=== PATIENT | female | born 1950 | race Caucasian/White ===

== ENCOUNTER → 2016-11-25 | Outpatient (CLI) | payer OTHER ==
[~2016-11-25] MED LIST: ATV/1 PO; B-COCAP2 PO; CHOL1000 PO; CNC/54 PO; FENO1TAB PO; FLVHFA110 INH; LUTE20TA PO; MECL-91 PO; MOME220A; MULT-506 PO; OMEG10007 PO; PRED1SUS3 OPL; PRLSR20 PO; PROM1SUP19 PR; SCOP1DIS14 TD; SUMA50TA15 PO; SYN100 PO; VITA400C15 PO; calcium PO; excedrine PO
== END | disposition home or self-care (01) ==
LOC: C.MAMM 09:44
PROVIDERS: ATTEND Family Medicine
DX: M85.80 Other specified disorders of bone density and structure, unspecified site (principal); R29.890 Loss of height; Z90.722 Acquired absence of ovaries, bilateral; Z78.0 Asymptomatic menopausal state; Z82.62 Family history of osteoporosis

== ENCOUNTER → 2017-01-19 | Outpatient (CLI) | payer OTHER ==
--- NOTE | 2017-01-19 10:36 | DIAGNOSTIC IMAGING REPORT ---
RIGHT RIBS UNILATERAL WITH PA CHEST CLINICAL HISTORY: Right rib pain. Recent trauma. COMPARISON STUDY: Chest x-ray dated 08/18/2016 FINDINGS: There is no pneumothorax. There is stable basilar atelectasis/scarring. There is no acute parenchymal consolidation. No right-sided rib fractures are visualized. IMPRESSION: No evidence of pneumothorax. No right-sided rib fractures are visualized. Electronically signed by: John Burnett M.D. 01/19/2017 10:35 AM Dictated Date/Time: 01/19/2017 10:33 AM
--- NOTE | 2017-01-19 10:37 | DIAGNOSTIC IMAGING REPORT ---
RIGHT HIP UNILATERAL 2 VIEWS CLINICAL HISTORY: Right hip pain COMPARISON: None. DISCUSSION: No fractures dislocations or destructive lesions are visualized. IMPRESSION: No fractures dislocations or destructive lesions are visualized. Electronically signed by: John Burnett M.D. 01/19/2017 10:35 AM Dictated Date/Time: 01/19/2017 10:35 AM
== END | disposition home or self-care (01) ==
LOC: C.RAD1850 10:17
PROVIDERS: ATTEND Student in an Organized Health Care Education/Training Program
DX: R10.9 Unspecified abdominal pain (principal)

== ENCOUNTER → 2017-01-19 | Outpatient (CLI) | payer OTHER ==
--- NOTE | 2017-01-19 12:15 | DIAGNOSTIC IMAGING REPORT ---
RENAL ULTRASOUND HISTORY: Generalized abdominal pain. COMPARISON: Renal ultrasound 02/27/2010. FINDINGS: Right kidney: 10.9 cm. No hydronephrosis. Normal corticomedullary differentiation and cortical thickness. A probable 4 mm stone within the right kidney. Left kidney: 11.1 cm. No hydronephrosis. Normal corticomedullary differentiation and cortical thickness. Bladder: No bladder wall thickening. The bilateral ureteral jets were identified. IMPRESSION: 1. Probable right-sided nephrolithiasis. No hydronephrosis. 2. Normal left kidney. Electronically signed by: Rashawn Fajardo M.D. 01/19/2017 12:14 PM Dictated Date/Time: 01/19/2017 12:13 PM
== END | disposition home or self-care (01) ==
LOC: C.ULTR 11:34
PROVIDERS: ATTEND Family Medicine
DX: R10.9 Unspecified abdominal pain (principal)

== ENCOUNTER → 2017-03-16 | Outpatient (CLI) | payer OTHER ==
[~2017-03-16] MED LIST changes: +SCOP1.5D2 TD; -SCOP1DIS14 TD
--- NOTE | 2017-03-16 16:24 | DIAGNOSTIC IMAGING REPORT ---
CHEST 2 VIEWS ROUTINE CLINICAL HISTORY: Shortness of breath and cough. COMPARISON STUDY: Chest radiograph August 18, 2016. FINDINGS: Lung volumes are at the lower limits of normal. There is no pneumothorax or pleural effusion. Bibasilar linear opacities suggest atelectasis. Cardiac size is within normal limits. There is no evidence of pulmonary edema. IMPRESSION: 1. No acute cardiopulmonary findings. 2. Bibasilar opacities suggestive of atelectasis. Electronically signed by: Viraj Rosales M.D. 03/16/2017 4:22 PM Dictated Date/Time: 03/16/2017 4:21 PM
== END | disposition home or self-care (01) ==
LOC: C.RAD1850 16:03
PROVIDERS: ATTEND Family Medicine
DX: R06.02 Shortness of breath (principal); R91.8 Other nonspecific abnormal finding of lung field

== ENCOUNTER → 2017-04-01 | Outpatient (CLI) | payer OTHER ==
[~2017-04-01] MED LIST changes: +OPTIRAY 320 IV PRN
--- NOTE | 2017-04-01 16:27 | DIAGNOSTIC IMAGING REPORT ---
CHEST CTA for PULMONARY ARTERIES CT DOSE: 370.27 mGycm HISTORY: Dyspnea SOB EVAL FOR PE TECHNIQUE: Multiaxial CT images of the chest were performed following the intravenous administration of contrast to evaluate the pulmonary arteries. Maximal intensity projection images were also obtained. COMPARISON STUDY: None. FINDINGS: There is a normal caliber thoracic aorta with no evidence for dissection. There is no evidence for pulmonary embolus. No pleural effusions. No pneumothorax. The liver and spleen are unremarkable. No mediastinal or hilar lymphadenopathy. The central airways are patent. The lungs demonstrate bibasilar parenchymal infiltrative change. IMPRESSION: 1. Study is negative for pulmonary embolus. 2. Poorly defined bibasilar parenchymal infiltrative change. Electronically signed by: Ac Nguyen M.D. 04/01/2017 4:25 PM Dictated Date/Time: 04/01/2017 4:17 PM
== END | disposition home or self-care (01) ==
LOC: C.CTS 15:57
PROVIDERS: ATTEND Family Medicine
DX: R06.02 Shortness of breath (principal); R91.8 Other nonspecific abnormal finding of lung field

== ENCOUNTER → 2017-04-08 | Outpatient (CLI) | payer OTHER ==
[~2017-04-08] MED LIST changes: -OPTIRAY 320 IV PRN
--- NOTE | 2017-04-13 06:39 | PULMONARY FUNCTION TEST ---
CLINICAL DATA: A 67-year-old female with a height of 68 inches and a weight of 170 pounds, referred for shortness of breath. The physician referring was Dr. Valentin. Spirometry pre- and post-bronchodilator, lung volumes, and DLCO were performed. FINDINGS: Pre-bronchodilator spirometry showed a minimal reduction in FEF 25-75 possibly suggesting mild obstructive small airways disease. FVC was 93% of predicted. FEV1 was 92% of predicted. FEF 25-75 was 82% of predicted. There was slight improvement after inhaled bronchodilator. FVC improved 1% to 94% of predicted. FEV1 improved 5% to 96% of predicted. FEF 25-75 improved 28% to 99% of predicted. Lung volumes showed a reduction in expiratory reserve volume due to weight. There was no evidence of air trapping. DLCO was normal at 79% of predicted. IMPRESSION: Very mild obstructive small airways disease with improvement after inhaled bronchodilator. Reduction in expiratory reserve volume due to obesity. Normal DLCO. MTDD
== END ==
LOC: C.RC 13:38
PROVIDERS: ATTEND Student in an Organized Health Care Education/Training Program
DX: R06.02 Shortness of breath (principal)

== ENCOUNTER → 2017-05-11 | Outpatient (CLI) | payer OTHER ==
[~2017-05-11] MED LIST changes: -SCOP1.5D2 TD; +SCOP1DIS14 TD
--- NOTE | 2017-05-11 13:04 | MAMMOGRAPHY REPORT ---
BILATERAL DIGITAL SCREENING MAMMOGRAM WITH CAD: 05/11/2017 CLINICAL HISTORY: Routine screening. Patient has no complaints. TECHNIQUE: Bilateral CC and MLO views were obtained. Current study was also evaluated with a Compute r Aided Detection (CAD) system. COMPARISON: Comparison is made to exams dated: 05/06/2016 mammogram, 04/23/2015 mammogram, 04/22/2014 ma mmogram, 04/16/2013 mammogram, 04/11/2012 mammogram, and 04/03/2012 mammogram - [facility]. BREAST COMPOSITION: There are scattered areas of fibroglandular density in both breasts. FINDINGS: There is a cluster of microcalcifications in the upper outer quadrant of the right breast, middle to posterior depth, for which additional spot magnification views are recommended. A possibl e loose grouping of microcalcifications in the left upper outer posterior breast also warranting spot magnification views. There is a 6 mm nodular asymmetry in the middle one third of the right breast along the posterior nipple line on the MLO view that could represent overlapping tissue, although add itional spot compression tomosynthesis views and possibly ultrasound are recommended. A possible are a of architectural distortion in the anterior right breast on the MLO view, 2.6 cm distal to the nipp le also warrant additional spot compression tomosynthesis views and possibly ultrasound. No other suspicious mass, architectural distortion or cluster of microcalcifications is seen bilnenaa katiana. IMPRESSION: ACR BI-RADS CATEGORY 0: INCOMPLETE EVALUATION: NEED ADDITIONAL IMAGING EVALUATION The bilateral microcalcifications, right breast nodular asymmetry and possible right breast distortio n need additional imaging evaluation. The patient will be called to schedule an appointment. Approximately 10% of breast cancers are not detected with mammography. A negative mammographic report should not delay biopsy if a clinically suggestive mass is present. Cheryle Doll M.D. ay/:05/11/2017 12:48:37 Caramel Coloring Operator: Ping SANCHEZ(Sharath)(Zandra)(JHOAN), [facility] letter sent: Addl Imaging 0 BI-RADS Code: ACR BI-RADS Category 0: Incomplete Evaluation: Need Additional Imaging Evaluation
== END | disposition home or self-care (01) ==
LOC: C.MAMM 07:54
PROVIDERS: ATTEND Family Medicine
DX: Z12.31 Encounter for screening mammogram for malignant neoplasm of breast (principal); R92.1 Mammographic calcification found on diagnostic imaging of breast; N64.89 Other specified disorders of breast

== ENCOUNTER → 2017-05-19 | Outpatient (CLI) | payer OTHER ==
--- NOTE | 2017-05-19 13:48 | MAMMOGRAPHY REPORT ---
BILATERAL DIGITAL DIAGNOSTIC MAMMOGRAM TOMOSYNTHESIS AND TARGETED RIGHT ULTRASOUND: 05/19/2017 CLINICAL HISTORY: Call back from screening mammography for bilateral microcalcifications, nodular asy mmetry and possible distortion in the right breast. TECHNIQUE: Bilateral spot magnification CC, ML and spot compression right CC and MLO 2-D digital and tomosynthesis images were obtained. COMPARISON: Comparison is made to exams dated: 05/11/2017 mammogram, 05/06/2016 mammogram, 04/23/2015 m ammogram, 04/22/2014 mammogram, 04/16/2013 mammogram, and 04/11/2012 mammogram - [facility]. BREAST COMPOSITION: The tissue of both breasts is heterogeneously dense, which may obscure small mas ses. FINDINGS: There is a loose grouping of punctate monomorphic microcalcifications in the upper outer p osterior left breast. This grouping contains 7-8 and the microcalcifications and when comparing to p rior available mammograms has been present and unchanged dating back to at least 03/31/2009, therefor e likely benign. No obvious mass or architectural distortion is seen in the visualized left upper ou ter quadrant on the spot magnification views. There are mild vascular calcifications. There is a small, 4 mm cluster of amorphous microcalcifications in the right upper outer quadrant ninfa t is indeterminate. Slight increased prominence compared to prior available mammograms. Definitive characterization with tissue sampling is recommended. On the additional spot compression views and t omosynthesis images, there is effacement of both the nodular asymmetry in the right breast along the posterior nipple line on the MLO view and also complete effacement of the questionable architectural distortion in the anterior subareolar breast. Further evaluation with ultrasound was performed. Targeted ultrasound was performed in the right breast from the 2:00 to 4:00, retroareolar and 8:00 th rough 10:00 axes. Normal fibroglandular tissue is seen without a discrete solid or cystic mass. IMPRESSION: ACR BI-RADS CATEGORY 4: SUSPICIOUS, TARGETED ULTRASOUND ACR BI-RADS CATEGORY 4: SUSPICIO US 1. Right breast stereotactic guided biopsy is recommended for a small 4 mm cluster of amorphous micr ocalcifications in the upper outer quadrant. 2. Loosely grouped punctate monomorphic microcalcifications in the left upper outer quadrant have be en stable dating back to 2008 and considered benign. 3. Effacement of the nodular asymmetry and possible architectural distortion in the right breast, an d no suspicious sonographic correlates. These findings are considered benign, most likely represente d normal overlapping fibroglandular tissue. These results and recommendations were discussed with the patient at the time of the exam. She pamela hallman scheduled the right breast stereotactic biopsy prior to leaving our department. Approximately 10% of breast cancers are not detected with mammography. A negative mammographic report should not delay biopsy if a clinically suggestive mass is present. Cheryle Doll M.D. ay/:05/19/2017 12:31:16 Machine Guide Base Winder: Sasha SANCHEZ(Sharath)(Zandra), [facility] letter sent: Abnormal 4/5 BI-RADS Code: ACR BI-RADS Category 4: Suspicious Ultrasound BI-RADS: ACR BI-RADS Category 4: Suspici ous
== END | disposition home or self-care (01) ==
LOC: C.MAMM 09:31
PROVIDERS: ATTEND Family Medicine
DX: R92.0 Mammographic microcalcification found on diagnostic imaging of breast (principal); N64.89 Other specified disorders of breast

== ENCOUNTER → 2017-05-27 | Outpatient (CLI) | payer OTHER ==
--- NOTE | 2017-05-27 08:52 | Discharge Instructions ---
Discharge Instructions Procedure Procedure Date: May 27, 2017. Reason for visit: Right Calcifications. Discharge Discharge Date: May 27, 2017. Discharge Diagnosis: status post breast biopsy Instructions Activity Recommendations: Additional Limitations (see below) Return to School/Work: no limitations Recommended Home Diet: No Limitations Provider Instructions: ACTIVITY RECOMMENDATIONS: * No lifting, pushing, pulling or exercising the affected side for three days. RETURN TO SCHOOL/WORK: * You may return to work/school after the procedure, but do not perform any strenuous activities for 24 to 48 hours. MEDICATIONS: * Tylenol (two 325 mg) every four to six hours if needed for mild pain (if not allergic to Tylenol). DIET: * Resume previous diet. SPECIAL CARE INSTRUCTIONS: * Keep biopsy site dry for 24 hours. May shower after 24 hours, but do not soak (bathe) incision. * May remove Tegaderm (plastic patch) tomorrow AFTER showering. * Leave the steri-strips on for one week. Allow the steri-strips to fall off by themselves. If not off after one week, you may remove them. You may place a Bandaid crosswise over the strips, if desired. * Apply ice 10 minutes on and 10 minutes off as needed. * Wear a bra at bedtime to sleep more comfortably for 2-3 days. * Your referring physician should have the results after approximately 5 to 7 business days. * Call for unusual bleeding, fever, drainage, etc or if you have any questions call during normal business hours or after hours call Dr Villalta, . FOLLOW UP VISIT: Follow-up with Referring Physician as scheduled. Allergies Coded Allergies: Hydromorphone (Verified Adverse Reaction, Intermediate, N/V, 10/08/15) Levofloxacin (Verified Adverse Reaction, Intermediate, EXTREME JOINT PAIN , 10/08/15) Morphine (Verified Adverse Reaction, Intermediate, N/V, 10/08/15) Aleta Cardenas Recommendations: Call your doctor if: * Temperature above 101 degrees * Pain not relieved by pain medicine ordered * There is increased drainage or redness from any incision * You have any unanswered questions or concerns. Your Doctors Instructions noted above were prepared by provider Mindi Villalta. Patient Signature Section: Patient Instructions Signature Page Radha Miles Patient (or Guardian) Signature/Date: I have read and understand the instructions given to me by my caregivers. Caregiver/RN/Doctor Signature/Date: The above-named patient and/or guardian has received patient instructions on this date. + Original Patient Signature Page (only) stays with chart. Please make copy for patient.
--- NOTE | 2017-05-27 12:44 | MAMMOGRAPHY REPORT ---
UNILATERAL RIGHT DIGITAL DIAGNOSTIC MAMMOGRAM: 05/27/2017 CLINICAL HISTORY: Status post right breast stereotactic biopsy. TECHNIQUE: Right CC and ML and LM views were obtained. COMPARISON: Comparison is made to exams dated: 05/19/2017 mammogram, 05/11/2017 mammogram, 05/06/2016 ma mmogram, 04/23/2015 mammogram, and 04/22/2014 mammogram - [facility]. BREAST COMPOSITION: The tissue of the right breast is heterogeneously dense, which may obscure small masses. FINDINGS: Preprocedural right LM view was obtained for biopsy planning purposes. Postprocedural rig ht ML and cc views were obtained, which shows a new dumbbell-shaped biopsy marker clip at the site of the biopsied calcifications in the right upper outer quadrant. No significant postbiopsy hematoma i s seen. IMPRESSION: POST PROCEDURE IMAGING FOR MARKER PLACEMENT New biopsy marker clip status post right breast stereotactic biopsy. Pathology results are pending. Approximately 10% of breast cancers are not detected with mammography. A negative mammographic report should not delay biopsy if a clinically suggestive mass is present. Mindi Villalta M.D. ah/:05/27/2017 09:06:38 Hem Marker: Sasha SANCHEZ(R)(M), [facility] BI-RADS Code: Post Procedure Imaging For Marker Placement
--- NOTE | 2017-05-27 12:44 | MAMMOGRAPHY REPORT ---
THIS REPORT HAS BEEN AMENDED. STEREOTACTIC GUIDED BIOPSY RIGHT BREAST: 05/27/2017 CLINICAL HISTORY: Right upper outer quadrant calcifications. PATIENT CONSENT: The procedure, risks, benefits, and alternatives of stereotactic biopsy with clip pl acement were discussed with the patient, and verbal and written consent was obtained. A timeout was performed immediately prior to the procedure. PROCEDURE DESCRIPTION: With stereotactic guidance, aseptic technique, and lidocaine as a local anesth etic (1% lidocaine to anesthetize the skin and 1% lidocaine with epinephrine to anesthetize the deepe r tissues), the calcifications of concern in the right upper outer quadrant were sampled multiple madan es with a 9-gauge vacuum-assisted biopsy needle ([employer]). The path of approach was lateral. Th e specimen radiograph demonstrates calcifications to be present in the samples. A metallic marker cl ip was placed at the biopsy site. This was confirmed on postprocedure mammograms. Direct pressure w as applied at the biopsy site and hemostasis was readily achieved. The patient tolerated the procedu re without complication. She was given wound care instructions. COMPARISON: Comparison is made to exams dated: 05/19/2017 ultrasound, 05/19/2017 mammogram, 05/11/2017 ma mmogram, 05/06/2016 mammogram, 04/23/2015 mammogram, and 04/22/2014 mammogram - [facility]. IMPRESSION: STEREOTACTIC GUIDED BIOPSY Stereotactic biopsy of indeterminate calcifications in the right upper outer quadrant, with clip plac ement. The patient will receive pathology results from her referring provider. Mindi Villalta M.D. ah/:05/27/2017 08:53:32 Attending Technologist: Siena Washburn, [facility] Food Order Expediter: Sasha Castillo RT(R)(M), [facility] AMENDMENT: 06/03/2017 Cheryle Doll M.D. Pathology results from the stereotactic guided biopsy of microcalcifications in the right upper outer quadrant yielded a fibroadenoma with microcalcifications. Negative for in situ and invasive carcino ma. The pathology results are concordant with the imaging appearance. Given that the other mammogra phic findings in each breast were considered benign at diagnostic workup, would recommend follow-up a t time of next annual screening mammogram.
== END | disposition home or self-care (01) ==
LOC: C.MAMM 08:22
PROVIDERS: ATTEND Family Medicine
DX: R92.0 Mammographic microcalcification found on diagnostic imaging of breast (principal); D24.1 Benign neoplasm of right breast

== ENCOUNTER → 2017-06-13 | Outpatient (CLI) | payer OTHER ==
[2017-06-13 14:49] LABS: BASO % 0.2 %; BASO ABS # 0.02 K/uL (0-0.2); COMPLETE YES; EOS % 0.8 %; HEMATOCRIT 42.3 % (37-47); IG% 0.2 %; LYMPH % 38.6 %; LYMPH ABS # 3.19 K/uL (1.2-3.4); MEAN CELL VOLUME 82.6 fL (80-100); MEAN CORPUSCULAR HEMOGLOBIN 26.4 pg (25-34); MEAN CORPUSCULAR HGB CONC 31.9 g/dl (32-36); MEAN PLATELET VOLUME 9.6 fL (7.4-10.4); MONO % 5.8 %; NEUT % 54.4 %; PLATELET COUNT 424 K/uL (130-400); RED BLOOD COUNT 5.12 M/uL (4.2-5.4); WHITE BLOOD COUNT 8.26 K/uL (4.8-10.8)
[2017-06-13 15:00] LABS: PARTIAL THROMBOPLASTIN RATIO 1.1; PROTHROMBIN TIME (PATIENT) 10.9 SECONDS (9.0-12.0)
[2017-06-13 15:07] LABS: ALB/GLOB RATIO 1.4 (0.9-2); ALT/SGPT 30 U/L (12-78); AST/SGOT 20 U/L (15-37); BLOOD UREA NITROGEN 23 mg/dl (7-18); BUN/CREATININE RATIO 17.8 (10-20); CALCIUM 9.6 mg/dl (8.5-10.1); CARBON DIOXIDE 26 mmol/L (21-32); CHLORIDE 106 mmol/L (98-107); GLUCOSE 120 mg/dl (70-99); POTASSIUM 3.8 mmol/L (3.5-5.1); SODIUM 140 mmol/L (136-145)
[2017-06-13 15:19] LABS: ALKALINE PHOSPHATASE 62 U/L (45-117); IMMUNOGLOBULN M 81.1 mg/dL (40-230)
--- NOTE | 2017-06-17 13:18 | CODING QUERY MEDICAL NECESSITY ---
SUPPORTING DIAGNOSIS NEEDED Dr. Roldan, A supporting diagnosis is required for the test/procedure performed on this patient in order for us to be reimbursed by the patient's insurance. Please provide a supporting diagnosis for the following test/procedure listed below next to the test name along with your signature. *If there is no additional diagnosis for this patient that would support the following test/procedure please document that below next to the test/procedure. Test(s)/Procedure(s) that require a supporting diagnosis: * ([id number]) IMMUNOGLOBULIN E DIAGNOSIS: DATE OF SERVICE: 06/13/17 Provider Signature: Date: Thank you Roby Luna [facility] Information Management Once completed, please kindly fax back to [phone] For questions please call [phone]
[2017-06-17 17:33] LABS: ASPERGILLUS FLAVUS Negative (Negative); ASPERGILLUS FUMIGATUS Negative (Negative); ASPERGILLUS NIGER Negative (Negative); IMMUNOGLOBULIN E TC 24620E 10 KU/L (<115)
== END | disposition home or self-care (01) ==
LOC: C.LAB 13:45
PROVIDERS: ATTEND Internal Medicine Pulmonary Disease
DX: J40 Bronchitis, not specified as acute or chronic (principal); E78.5 Hyperlipidemia, unspecified

== ENCOUNTER → 2017-07-05 | Day surgery (SDC) | payer OTHER ==
--- NOTE | 2017-07-05 10:25 | DIAGNOSTIC IMAGING REPORT ---
SINUSES-MAXILLOFACIAL W/O HISTORY: 67 years-old Female patient presents with sinusitis, congestion and pneumonia. COMPARISON: CT head 10/18/2014 TECHNIQUE: Multiple axial CT images of the paranasal sinuses and maxillofacial bones were obtained without the use of IV contrast. A dose lowering technique was used consistent with the principals of MAMTA. FINDINGS: There is mild cerebral atrophy without acute intracranial abnormality identified. There is atherosclerotic plaquing of the cerebral vasculature the level of the skull base. The bilateral maxillary sinuses are capacious and clear. The sphenoid, frontal and ethmoid sinuses are also clear. There is only minimal rightward bowing of the nasal septum. The vomer is intact. No large isreal bullosa or Tri cells are identified. Bilateral maxillary ostiomeatal units, frontoethmoidal and sphenoethmoidal recesses are patent. No sinonasal polyps are identified. The nasopharynx is patent. No facial bone fracture or dislocation is identified. The mastoid air cells and middle ear cavities are clear bilaterally. Moderate degenerative changes involve the bilateral temporomandibular joints. Imaged cervical spine appears intact. There is been prior bilateral cataract repair. IMPRESSION: No evidence of significant paranasal sinus disease or ostiomeatal occlusive pattern. The above report was generated using voice recognition software. It may contain grammatical, syntax or spelling errors. Electronically signed by: Warren Sow M.D. 07/05/2017 10:24 AM Dictated Date/Time: 07/05/2017 10:19 AM
== END | disposition home or self-care (01) ==
LOC: C.CTS 09:37
PROVIDERS: ATTEND Internal Medicine Pulmonary Disease
DX: J40 Bronchitis, not specified as acute or chronic (principal)

== ENCOUNTER 2017-07-08 07:29 | Day surgery (SDC) | payer OTHER ==
[~2017-07-08] VITALS: Ht 172.7 cm; Wt 78.0 kg
[2017-07-08] VITALS (14 sets, daily range): BP systolic 116–169; BP diastolic 30–91; PULSE 76–89; TEMP 36.5–37; O2SAT 95–100; Ht 172.7 cm; Wt 78.0 kg
[~2017-07-08 07:29] MED LIST changes: -CHOL1000 PO; -FLVHFA110 INH; -LUTE20TA PO; -MECL-91 PO; -MOME220A; -PRLSR20 PO; -SCOP1DIS14 TD; -calcium PO; -excedrine PO
[2017-07-08] MEDS ORDERED: MIDAZOLAM HCL 5 MG/ML 1 ML VIAL IV ONE ×2 (07:30→10:15)
[2017-07-08] MEDS ORDERED: LEVALBUTEROL 1.25MG/3ML NEB INH ONE (07:30)
[2017-07-08] MEDS ORDERED: CHOL1000 PO (08:07)
[2017-07-08] MEDS ORDERED: PRLSR20 PO (08:07)
[2017-07-08] MEDS ORDERED: MOME220A (08:07)
[2017-07-08] MEDS ORDERED: MECL-91 PO (08:07)
[2017-07-08] MEDS ORDERED: SCOP1DIS14 TD (08:07)
[2017-07-08] MEDS ORDERED: calcium PO (08:07)
[2017-07-08] MEDS ORDERED: FLVHFA110 INH (08:07)
[2017-07-08] MEDS ORDERED: excedrine PO (08:07)
[2017-07-08] MEDS ORDERED: LUTE20TA PO (08:07)
--- NOTE | 2017-07-08 08:30 | History & Physical Bridge Note ---
H&P Re-Evaluation Bridge Note: I have examined the patient, reviewed the History & Physical and in the interval since the performance of the History & Physical I have noted the following changes of clinical significance: No changes noted
--- NOTE | 2017-07-08 08:30 | Procedure Note ---
Pre-Mod Sedation Assessment General Date of Moderate Sedation: Jul 08, 2017. Vital Signs: Vital Signs Past 12 Hours Date Time Temp Pulse Resp B/P (MAP) Pulse Ox O2 Delivery O2 Flow Rate FiO2 07/08/17 08:08 36.5 81 18 141/67 (91) 95 Room Air Pre-Sedation Airway Assessment Oral Cavity: WNL Smoking Status: Never Smoker Mallampati Classification: Class II ASA Classification: Class II Procedure Planning Contraindications-for Mod Sed: None Yes Notes The planned sedation has been discussed with the patient and consent obtained. I have identified the patient, determined the appropriateness of sedation and have assessed the patient immediately prior to the procedure. All medicine(s) and interventions are by my order.
[2017-07-08] MEDS ORDERED: NURSING VERBAL MED ORDER ONE (09:45)
--- NOTE | 2017-07-08 10:16 | OPERATIVE REPORT ---
DATE OF OPERATION: 07/08/2017 PROCEDURE: Fiberoptic bronchoscopy with bronchoalveolar lavage. INDICATIONS: Persistent chest congestion/cough refractory to outpatient therapy. ANESTHESIA PREOPERATIVELY: None. ANESTHESIA DURING PROCEDURE: 5 mg IV Versed, 20 mL of 2% Xylocaine spray above and below the cords, and 4% viscous Xylocaine intranasally. DESCRIPTION OF PROCEDURE: Fiberoptic bronchoscope was inserted into the left naris with minimal difficulty and passed to the level of the true vocal cords. The cords appeared to approximate normally with phonation without evidence of lesions or paralysis. The scope was then passed through the cords into the trachea and right and left tracheobronchial tree. The damaris was sharp. 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 The right upper lobe, the apical posterior and anterior segments, bronchus intermedius, right middle lobe and the medial and lateral segments and all basilar segments right lower lobe were found to be free of endobronchial lesions with a minimal amount of mucopurulent secretion lavaged from right lower lobe until clear. Left tracheobronchial tree showed a moderate amount of mucopurulent secretion lavaged from all lobar segments. Left upper lobe, the apical-posterior and anterior segments, lingular subdivision with the superior and inferior segments and all basilar segments of left lower lobe were free of endobronchial lesions. A moderate degree of global inflammatory mucosal change was seen throughout the left tracheobronchial tree, more pronounced involving the lingula and left upper lobe orifice. This area was lavaged with normosol and the aspirate sent for appropriate studies. No brushings or biopsies were deemed necessary. Fluoroscopy was not utilized. The procedure was terminated. The patient was mildly bronchospastic and was given 40 mg IV Solu-Medrol and a nebulizer treatment with Xopenex 1.25 mg and transferred to the medical treatment unit hemodynamically stable with no signs of respiratory compromise. We will await microbiological and cytologic examination of the bronchial washings. I attest to the content of the Intraoperative Record and any orders documented therein. Any exception s are noted below.
--- NOTE | 2017-07-08 10:56 | Discharge Instructions ---
Discharge Instructions Date of Service Jul 08, 2017. Admission Reason for Admission: Pneumonia, Bronchitis Discharge Discharge Diagnosis / Problem: Chronic Bronchitis Discharge Goals Goal(s): Improve function, Therapeutic intervention Activity Recommendations Activity Limitations: resume your previous activity Lifting Limitations: none Exercise/Sports Limitations: as tolerated May Resume Sexual Activity: when tolerated Shower/Bathe: no limitations Driving or Machine Use: resume 1 day after discharge None . Instructions / Follow-Up Instructions / Follow-Up ACTIVITY RECOMMENDATIONS: * Rest today, resume normal activity tomorrow. * Do not drive today. SPECIAL CARE INSTRUCTIONS: * Call your physician if you experience any chest or shoulder pain, fever, coughing, spitting up blood (more than 2 teaspoons) or excessive shortness of breath. * Remove dressing from IV site (where needle was placed into the vein) after 2 hours. Apply a warm, moist compress to site if irritation occurs. Call physician if site becomes red or painful to touch. FOLLOW UP VISIT: * Keep any scheduled doctor appointments. Current Hospital Diet Patient's current hospital diet: Regular diet Discharge Diet Recommended Diet: Regular Diet Fluid Restriction: None Pending Studies Studies pending at discharge: no Medical Emergencies . Who to Call and When: Medical Emergencies: If at any time you feel your situation is an emergency, please call 911 immediately. . Non-Emergent Contact Non-Emergency issues call your: Drapery Operator . Past History Medical & Surgical History: (1) Phlebitis & Thrombophlebitis Upper Extrem Nos (2) Hypothyroidism Nos (3) Hyperlipidemia . "Provider Documentation" section prepared by Farhad Roldan. . VTE Core Measure Inpt VTE Proph given/why not?: Treatment not indicated
[2017-08-03 09:29] LABS: HERPES SIMPLEX CULT SOURCE RESPIRATORY-LUL WASH; HERPES SIMPLEX VIRUS CULT NOT ISOLATED (NOT ISOLATED)
== END 2017-07-08 11:50 | disposition home or self-care (01) ==
LOC: C.ACU 07:29
PROVIDERS: ATTEND Internal Medicine Pulmonary Disease
DX: J18.9 Pneumonia, unspecified organism (principal); J40 Bronchitis, not specified as acute or chronic; R05 Cough; E78.00 Pure hypercholesterolemia, unspecified; E03.9 Hypothyroidism, unspecified; N20.0 Calculus of kidney

== ENCOUNTER → 2017-08-16 | Outpatient (CLI) | payer OTHER ==
[~2017-08-16] MED LIST changes: +CHOL1000 PO; +LUTE20TA PO; +MECL-91 PO; +MOME220A; -OMEG10007 PO; -PRED1SUS3 OPL; +PRLSR20 PO; -PROM1SUP19 PR; +SCOP1DIS14 TD; +calcium PO; +excedrine PO
[2017-08-16 12:52] LABS: IMMUNOGLOBULN M 83.2 mg/dL (40-230)
[2017-08-20 14:18] LABS: ASPERGILLUS FUMIGATUS NEGATIVE (NEGATIVE); DIPTHERIA ANTITOXID 0.06 IU/mL; IMMUNOGLOBULIN E TC 24620E 7 KU/L (<115); M. FAENI (S. RECTIVIRGULA) NEGATIVE (NEGATIVE); PIGEON SERUM NEGATIVE (NEGATIVE); PNEUMOCOCCAL IGG TYPE 1 9.5; PNEUMOCOCCAL IGG TYPE 12(12F 1.3; PNEUMOCOCCAL IGG TYPE 14 1.9; PNEUMOCOCCAL IGG TYPE 19(19F 2.3; PNEUMOCOCCAL IGG TYPE 23(23F 0.9; PNEUMOCOCCAL IGG TYPE 3 1.7; PNEUMOCOCCAL IGG TYPE 4 0.3; PNEUMOCOCCAL IGG TYPE 5 1.5; PNEUMOCOCCAL IGG TYPE 51 (7F 0.5; PNEUMOCOCCAL IGG TYPE 56(18C 6.7; PNEUMOCOCCAL IGG TYPE 68 (9V 2.2; PNEUMOCOCCAL IGG TYPE 8 0.4; PNEUMOCOCCAL IGG TYPE 9 (9N) 1.7; SACCHAROMONOSPORA VIRIDIS AB NEGATIVE (NEGATIVE); THERMOACTINOMYCES CANDIDUS NEGATIVE (NEGATIVE); THERMOACTINOMYCES VULGARIS NEGATIVE (NEGATIVE)
--- NOTE | 2017-08-22 12:47 | CODING QUERY MEDICAL NECESSITY ---
SUPPORTING DIAGNOSIS NEEDED A supporting diagnosis is required for the test/procedure performed on this patient in order for us to be reimbursed by the patient's insurance. Please provide a supporting diagnosis for the following test/procedure listed below next to the test name along with your signature. *If there is no additional diagnosis for this patient that would support the following test/procedure please document that below next to the test/procedure. Test(s)/Procedure(s) that require a supporting diagnosis: * IMMUNOGLOBULIN E DIAGNOSIS: Provider Signature: Date: Thank you Thania Paula milog Information Management Once completed, please kindly fax back to [phone] For questions please call [phone]
== END | disposition home or self-care (01) ==
LOC: C.LAB 10:34
PROVIDERS: ATTEND Internal Medicine Pulmonary Disease
DX: R05 Cough (principal); J40 Bronchitis, not specified as acute or chronic; J18.9 Pneumonia, unspecified organism

== ENCOUNTER → 2017-12-28 | Outpatient (CLI) | payer OTHER ==
[~2017-12-28] MED LIST changes: +SCOP1.5D2 TD; -SCOP1DIS14 TD
--- NOTE | 2017-12-28 14:47 | DIAGNOSTIC IMAGING REPORT ---
CHEST 2 VIEWS ROUTINE HISTORY: 67 years-old Female R06.02 Shortness of [id number] acute shortness of breath COMPARISON: Chest radiographs 03/16/2017, CTA chest 04/01/2017 TECHNIQUE: PA and lateral views of the chest FINDINGS: Cardiomediastinal and hilar silhouettes are within normal limits. No pneumothorax, pleural effusion, focal airspace consolidation or overt pulmonary edema. Chronic subsegmental atelectasis and scarring of the lung bases, left greater than right is noted with blunting of the left costophrenic angle. The bones of the chest appear grossly intact. IMPRESSION: 1. No acute process. 2. Chronic subsegmental left greater than right bibasilar atelectasis/scarring with blunting of the left costophrenic angle. The above report was generated using voice recognition software. It may contain grammatical, syntax or spelling errors. Electronically signed by: Warren Sow M.D. 12/28/2017 2:46 PM Dictated Date/Time: 12/28/2017 2:45 PM
[2017-12-28 15:37] LABS: BASO % 0.6 %; BASO ABS # 0.05 K/uL (0-0.2); EOS % 1.8 %; EOS ABS # 0.15 K/uL (0-0.5); HEMATOCRIT 36.7 % (37-47); IG# 0.03 K/uL (0.00-0.02); LYMPH % 34.8 %; LYMPH ABS # 2.97 K/uL (1.2-3.4); MEAN CORPUSCULAR HEMOGLOBIN 27.1 pg (25-34); MEAN CORPUSCULAR HGB CONC 32.7 g/dl (32-36); MEAN PLATELET VOLUME 9.6 fL (7.4-10.4); MONO % 8.4 %; MONO ABS # 0.72 K/uL (0.11-0.59); NEUT ABS # 4.61 K/uL (1.4-6.5); PLATELET COUNT 384 K/uL (130-400); RED CELL DISTRIBUTION WIDTH CV 13.4 % (11.5-14.5); RED CELL DISTRIBUTION WIDTH SD 40.6 fL (36.4-46.3); WHITE BLOOD COUNT 8.53 K/uL (4.8-10.8)
[2017-12-28 16:03] LABS: ALBUMIN 4.1 gm/dl (3.4-5.0); ALT/SGPT 25 U/L (12-78); AST/SGOT 18 U/L (15-37); BLOOD UREA NITROGEN 23 mg/dl (7-18); CALCIUM 9.5 mg/dl (8.5-10.1); CARBON DIOXIDE 26 mmol/L (21-32); CREATININE 1.15 mg/dl (0.60-1.20); GLUCOSE 92 mg/dl (70-99); POTASSIUM 3.8 mmol/L (3.5-5.1); SODIUM 138 mmol/L (136-145)
[2017-12-28 16:13] LABS: ALKALINE PHOSPHATASE 49 U/L (45-117); TOTAL PROTEIN 7.2 gm/dl (6.4-8.2)
[2017-12-28 16:30] LABS: INFLUENZA A PCR Neg for Influ A (NEG); INFLUENZA B PCR Neg for Influ B (NEG)
== END | disposition home or self-care (01) ==
LOC: C.RAD1850 14:07
PROVIDERS: ATTEND Physician Assistant
DX: J98.11 Atelectasis (principal)